=== PATIENT | male | born 1945 | race Hispanic/Latino ===

== ENCOUNTER 2021-04-07 10:20 | Emergency (ER) | payer OTHER ==
[~2021-04-07] VITALS: Ht 165.1 cm; Wt 88.5 kg
[2021-04-07] MEDS ORDERED: ZOFRAN4 MG PO (10:57)
[2021-04-07] MEDS ORDERED: FAMOTIDINE20 MG PO (10:57)
[2021-04-07] MEDS ORDERED: MAALOX MAXIMUM355 ML PO (10:57)
== END 2021-04-07 11:22 | disposition home or self-care (01) ==
LOC: FSED 10:35
DX: K52.9 Noninfective gastroenteritis and colitis, unspecified (principal); I10 Essential (primary) hypertension
CPT/HCPCS: 99283